=== PATIENT | male | born 1970 | race Caucasian/White ===

== ENCOUNTER → 2016-09-10 | Outpatient (CLI) | payer OTHER ==
--- NOTE | ~2016-09-10 | SLE ---
[facility] [place] [address] POLYSOMNOGRAPHY STUDY Name: IMER GORDON Room #: REG [facility]#: [id number] Admission: 09/10/16 Attend Phys: Georgina Vargas MD Discharge: Date of : 70 Report #: [id number] THIS REPORT FOR: //name// CC: Georgina Yeh MD A 46-year-old, height 6 feet 2 inches, weight 310 pounds. Usually goes to bed at midnight, gets out of bed at 6:00 a.m. Positive snoring. study July 2016. Home study showed, apnea-hypopnea index 6-9 events per recording hour, positional component. Low oxygen saturation 74%. There was 36 central apneas. COMMENTS: CPAP TITRATION: Titrated at 6 7, 9, 10, 11 and 12 cm water pressure. At 12 cm water pressure, the patient was seen for 38 minutes of which 20 minutes was in REM sleep. Apnea-hypopnea index 0 events per sleep hour, low sat of 93%. IMPRESSION: 1. History of obstructive sleep apnea, G47.33. 2. No significant arrhythmia noted. 3. No significant periodic limb movements noted. 4. CPAP improves the patient's apnea-hypopnea index, snoring and desaturation. SUGGESTIONS: 1. In addition to specific therapy, the patient should be cautioned regarding driving or operating dangerous machinery unless fully alert. The patient should be cautioned regarding the use of respiratory depressants. 2. Oral appliance or appropriate surgery may be considered with appropriate followup. 3. The usual sleep apnea suggestions recommended. 4. An auto-titrating CPAP between 6 and 14 cm water pressure is recommended. During our study, an Eson 2 nasal mask medium was used with heated humidity. 5. If signs and symptoms not improved with therapy, further evaluation is recommended. Please do not hesitate to contact me if I may be of further assistance. By: 13 35 Georgina Vargas MD /nt
== END ==
LOC: SLEEPLAB 08:49 → EDSTATUS 16:15 → SLEEPLAB 20:50
DX: G47.33 Obstructive sleep apnea (adult) (pediatric) (principal)